=== PATIENT | male | born 1945 | race Caucasian/White ===

== ENCOUNTER 2022-06-03 21:09 | Inpatient (IN) | payer MEDICARE, BC ==
[~2022-06-03] VITALS: Ht 167.6 cm; Wt 77.6 kg
[~2022-06-03 21:09] MED LIST: ASPI-1420 PO; CARV3.122 PO; CLOP75TA15 PO; DONE5TAB34 PO; DOXA2TAB2 PO; FLUO20CA42 PO; FLUT1DIS29 IH; FURO20TA4 PO; IPRA3AMP22 IH; LEVA15HF5 IH; OMEP-99 PO; PRED50TA PO; TAMS0.4C34 PO; TIOT18CA4 IH; TRIA60LO7 TOP
--- NOTE | 2022-06-03 21:28 | NUR ---
Patient placed on CPAP by RT
[2022-06-03] MEDS ORDERED: methylPREDNISolone SOD SUCC 125 MG/2 ML VIAL IV ONE (21:30)
[2022-06-03] MEDS ORDERED: MAGNESIUM SULFATE 2 GM in IV DEXTROSE 5% 100 ML IV ONE (21:30)
--- NOTE | 2022-06-03 21:30 | NUR ---
Xray at bedside
[2022-06-03] MEDS ORDERED: ROSU5TAB PO (21:34)
[2022-06-03] MEDS ORDERED: HYDR500C2 PO (21:34)
[2022-06-03] MEDS ORDERED: APIX5TAB4 PO (21:34)
[2022-06-03] MEDS ORDERED: REPA1TAB7 PO (21:34)
[2022-06-03] MEDS ORDERED: SITA100T PO (21:34)
[2022-06-03] MEDS ORDERED: VALS40TA4 PO (21:34)
[2022-06-03] MEDS ORDERED: DAPA10TA PO (21:34)
[2022-06-03] MEDS ORDERED: OXYB5TAB16 PO (21:35)
[2022-06-03] MEDS ORDERED: MV-M1TAB18 PO (21:35)
[2022-06-03] MEDS ORDERED: OMEP40CA21 PO (21:35)
[2022-06-03] MEDS ORDERED: FURO20TA4 PO (21:35)
[2022-06-03] MEDS ORDERED: PRED20TA PO (21:35)
[2022-06-03] MEDS ORDERED: BUME2TAB7 PO (21:35)
[2022-06-03] MEDS ORDERED: MULT-596 PO (21:35)
[2022-06-03] MEDS ORDERED: TRIA15CR2 TP (21:35)
[2022-06-03] MEDS ORDERED: CYAN-51 PO (21:35)
[2022-06-03] MEDS ORDERED: FINA5TAB11 PO (21:35)
[2022-06-03] MEDS ORDERED: IPRA4AER IH (21:35)
[2022-06-03] MEDS ORDERED: MAGN400C PO (21:35)
[2022-06-03] MEDS ORDERED: MAGNESIUM SULFATE 1 GM/2 ML VIAL ONE (21:44)
[2022-06-03] MEDS ORDERED: methylPREDNISolone SOD SUCC 125 MG/2 ML VIAL ONE (21:44)
[2022-06-03 21:49] LABS: HEMATOCRIT 37.9 % (36.7-47.1); MEAN CORPUSCULAR HEMOGLOBIN 34.7 uug (23.8-33.4); MEAN CORPUSCULAR VOLUME 110.6 fL (73.0-96.2); PLATELET COUNT (AUTO) 196 K/uL (152-348)
[2022-06-03 21:58] LABS: CARBON DIOXIDE 33 mmol/L (21-32); CHLORIDE 101 mmol/L (98-107); CREATININE 1.6 mg/dL (0.6-1.3); GLUCOSE 213 mg/dL (74-106); POTASSIUM 4.3 mmol/L (3.5-5.1); UREA NITROGEN, BLOOD 41 mg/dL (7-18)
--- NOTE | 2022-06-03 22:05 | NUR ---
COVID and Flu swab sent to lab
[2022-06-03] MEDS ORDERED: CEFTRIAXONE /D5W 50ML IVPB **ER PYXIS IV ONE (22:12)
[2022-06-03] MEDS ORDERED: CEFTRIAXONE 1 G in IV DEXTROSE 5% 50 ML IV ONE (22:15)
[2022-06-03] MEDS ORDERED: AZITHROMYCIN IV 500 MG in IV DEXTROSE 5% 250 ML IV ONE (22:15)
[2022-06-03 22:16] LABS: ALANINE AMINOTRANSFERASE 24 U/L (16-63); ALKALINE PHOSPHATASE 64 U/L (50-136); ASPARTATE AMINOTRANSFERASE 28 U/L (15-37); BILIRUBIN,DIRECT 0.1 mg/dL (0.0-0.2); BILIRUBIN,TOTAL 0.6 mg/dL (0.2-1.0); TOTAL PROTEIN, SERUM 6.9 g/dL (6.4-8.2)
[2022-06-03 22:19] LABS: ABG BASE EXCESS 2.8 mmol/L; ABG HCO3 29.3 mmol/L; ABG PCO2 53.4 mmHg (35.0-45.0); ABG PH 7.357 (7.350-7.450); ABG PO2 549.5 mmHg (75.0-100.0); ABG SITE LEFT RADIAL; ABG TOTAL HEMOGLOBIN 12.5 G/dL (13.5-18.0); COHb 0.1 % (0.5-1.5); MetHb 0.3 % (0.0-1.5); O2Hb 99.5 % (94.0-97.0); VENT MODE BIPAP
--- NOTE | 2022-06-03 22:39 | NUR ---
Called [facility] for panel call. Lo configuration specialist, waiting for call back.
[2022-06-03] MEDS ORDERED: AZITHROMYCIN 500MG/ D5W 250ML IVPB **ER PYXIS ONLY IV ONE (23:10)
[2022-06-03] MEDS ORDERED: FUROSEMIDE 40 MG/4 ML VIAL IV ONE (23:45)
[2022-06-04] VITALS (11 sets, daily range): BP systolic 90–125; BP diastolic 36–69
[2022-06-04] MEDS ORDERED: ONDANSETRON 4 MG/2 ML VIAL IV PRN
[2022-06-04] MEDS ORDERED: INSULIN REGULAR, HUMAN 300 UNITS/3 ML VIAL SQ PRN
[2022-06-04] MEDS ORDERED: DEXTROSE 50% 50 ML DISP.SYRIN IV PRN
[2022-06-04] MEDS ORDERED: REMEDY ESSENTIAL ZINC PASTE 113 GM TP PRN
[2022-06-04] MEDS ORDERED: ACETAMINOPHEN 325 MG TABLET PO PRN
[2022-06-04] MEDS ORDERED: MAGNESIUM HYDROXIDE 30 ML LIQUID UDC PO PRN
--- NOTE | 2022-06-04 00:19 | NUR ---
Report given to Kvng ARMENDARIZ.
--- NOTE | 2022-06-04 01:01 | NUR ---
Patient taken to third floor room 315 via shwetha with personal belongings accompanied by respiratory therapist. Patient in stable conditions no signs of distress. Addendum: 06/04/22 at 0116 by EUGENIO Marah ARMENDARIZ aware of patients arrival
[2022-06-04] MEDS: methylPREDNISolone SOD SUCC 125 MG/2 ML VIAL IV SCH ×4 (01:36→17:04)
[2022-06-04] MEDS ORDERED: FUROSEMIDE 40 MG/4 ML VIAL IV ONE (01:45)
[2022-06-04] MEDS: PANTOPRAZOLE SODIUM 40 MG TABLET.DR PO SCH (06:21)
[2022-06-04] MEDS: BLOOD SUGAR DIAGNOSTIC 1 EACH STRIP VI SCH ×4 (06:22→20:24)
[2022-06-04 07:28] LABS: CARBON DIOXIDE 31 mmol/L (21-32); CHLORIDE 101 mmol/L (98-107); CREATININE 1.4 mg/dL (0.6-1.3); GLUCOSE 168 mg/dL (74-106); PHOSPHOROUS 5.2 mg/dL (2.5-4.9); POTASSIUM 4.1 mmol/L (3.5-5.1); UREA NITROGEN, BLOOD 37 mg/dL (7-18)
[2022-06-04 07:33] LABS: HEMATOCRIT 33.7 % (36.7-47.1); MEAN CORPUSCULAR HEMOGLOBIN 35.4 uug (23.8-33.4); MEAN CORPUSCULAR VOLUME 109.3 fL (73.0-96.2); PLATELET COUNT (AUTO) 175 K/uL (152-348)
[2022-06-04] MEDS: INSULIN REGULAR, HUMAN 300 UNIT/3 ML VIAL SQ PRN ×2 (08:21→11:01)
[2022-06-04] MEDS: FLUOXETINE HCL 20 MG CAPSULE PO SCH (08:38)
[2022-06-04] MEDS: OXYBUTYNIN CHLORIDE 5 MG TABLET PO SCH ×2 (08:38→16:47)
[2022-06-04] MEDS: TAMSULOSIN HCL 0.4 MG CAP.SR.24H PO SCH (08:38)
[2022-06-04] MEDS: FINASTERIDE 5 MG TABLET PO SCH (08:38)
[2022-06-04] MEDS: ASPIRIN EC 81 MG TABLET.DR PO SCH (08:38)
[2022-06-04] MEDS: CARVEDILOL 3.125 MG TABLET PO SCH ×2 (08:40→16:47)
[2022-06-04] MEDS: HYDROXYUREA 500 MG CAPSULE PO SCH (08:48)
[2022-06-04] MEDS ORDERED: FUROSEMIDE 40 MG/4 ML VIAL IV SCH (10:00)
--- NOTE | 2022-06-04 10:00 | NUR ---
Patient developed wheezing, sob, and labored breathing, o2 sat at nasal canula at 2 liter is 98%, dr osborne ordered, lasix, and breathing tx.
[2022-06-04] MEDS ORDERED: IPRATROPIUM BROMIDE 0.5 MG/2.5 ML NEBU NEB PRN (10:15)
[2022-06-04] MEDS ORDERED: ALBUTEROL SULFATE 2.5 MG/ 0.5 ML NEBU NEB PRN (10:15)
[2022-06-04] MEDS: FUROSEMIDE 40 MG/4 ML VIAL IV SCH ×2 (10:17→17:59)
[2022-06-04] MEDS ORDERED: DILTIAZEM HCL 25 MG IV IV PRN ×2 (10:18)
--- NOTE | 2022-06-04 11:00 | NUR ---
sob resolved, still noted with mild wheezing, however stable at this time. no acute distress noted.
--- NOTE | 2022-06-04 16:49 | NUR ---
patient noted with labored breathing wheezing, and stating that he can not breath, however was saturating at 98% at 2 liter nasal canula. patient stated he would like to go back to Bipap, that machine really helps him, RT called, Bipap initiated at 1625, 32% Fio2. MD Blanchard is aware. Per Dr Blanchard if patient needs continuous of Bipap or unstable transfer to ICU. Pet Stylist made aware, charge nurse is aware. patient stated he feels better. Addendum: 06/04/22 at 1756 by SHAY MAIN RN, RN CLARIFICATION patient stated he feels better on Bipap
--- NOTE | 2022-06-04 17:30 | NUR ---
Dr Bowens was called and notified about consult and current condition of patient.
--- NOTE | 2022-06-04 17:45 | NUR ---
report given to CCU nurse Ring, patient is alert, oriented x4, verbally responsive, patient is currently on Bipap with settings of Fio2 32%, rate 18, EPAP 6, IPAP 18. Transferred to CCU. Addendum: 06/04/22 at 1812 by SHAY MAIN RN, RN patient noted he has his wallet with him in his pants, which he did not want to expose it to anyone, he refused to give it to nurse and refused to save it in the safe, stated he wants to keep it with him, risks and benefits explained of loosing it. verbalized understanding of it still insisted to keep it with him. patient right to refuse respected. endorsed all the belongings to CCU nurse Ring accordingly. Addendum: 06/04/22 at 1815 by SHAY MAIN RN, RN Patient was transferred to CCU with charge nurse on duty, RT on duty and primary nurse.
--- NOTE | 2022-06-04 18:04 | NUR ---
patient came up on 3l NC off bipap at the time. patient was labored, and wheezing. Dr Bowens notified that patient was going to be transferred to ICU and there is consult for the patient by Benito ARMENDARIZ. Patient had an ABG drawn and then placed back on bipap.
[2022-06-04 18:06] LABS: ABG BASE EXCESS 4.2 mmol/L; ABG HCO3 30.1 mmol/L; ABG PH 7.389 (7.350-7.450); ABG PO2 106.9 mmHg (75.0-100.0); ABG SITE LEFT BRACHIAL; ABG TOTAL HEMOGLOBIN 12.2 G/dL (13.5-18.0); COHb 0.4 % (0.5-1.5); MetHb 0.3 % (0.0-1.5); O2Hb 97.3 % (94.0-97.0); VENT MODE Nasal Cannula
[2022-06-04] MEDS: CEFTRIAXONE 1 G in IV DEXTROSE 5% 50 ML IV SCH (20:17)
[2022-06-04] MEDS: ALBUTEROL SULFATE 2.5 MG/3 ML NEBU NEB SCH (21:19)
[2022-06-04] MEDS: IPRATROPIUM BROMIDE 0.5 MG/2.5 ML NEBU NEB SCH (21:19)
--- NOTE | 2022-06-04 23:40 | NUR ---
PATIENT ON AND OFF BI/PAP. ALERT AND AWAKE AT TIMES, HAS BOUTS OF SOB,OFF AT 2100, ON 2L/M NC, THEN BACK ON BI/PAP @ 23:00 , ON BI/PAP, RESTING, SAT 98%, COMFORTABLE ON BI/PAP . Ledy ANDERSON RCP Addendum: 06/04/22 at 2342 by FADUMO ANDERSON RT Amended: Links added.
[2022-06-05] VITALS (22 sets, daily range): BP systolic 94–130; BP diastolic 43–77
[2022-06-05] MEDS: methylPREDNISolone SOD SUCC 125 MG/2 ML VIAL IV SCH ×3 (00:27→20:59)
[2022-06-05 05:06] LABS: HEMATOCRIT 35.1 % (36.7-47.1); MEAN CORPUSCULAR HEMOGLOBIN 34.9 uug (23.8-33.4); MEAN CORPUSCULAR VOLUME 108.6 fL (73.0-96.2); PLATELET COUNT (AUTO) 182 K/uL (152-348)
[2022-06-05 05:23] LABS: CARBON DIOXIDE 37 mmol/L (21-32); CHLORIDE 102 mmol/L (98-107); CREATININE 1.1 mg/dL (0.6-1.3); GLUCOSE 138 mg/dL (74-106); MAGNESIUM 2.8 mg/dL (1.8-2.4); POTASSIUM 3.8 mmol/L (3.5-5.1); UREA NITROGEN, BLOOD 38 mg/dL (7-18)
[2022-06-05] MEDS: PANTOPRAZOLE SODIUM 40 MG TABLET.DR PO SCH (06:29)
--- NOTE | 2022-06-05 07:15 | NUR ---
Report given and care taken over. Pt in bed sitting up watching television No signs of distress noted. Pt able to make needs known. Accucheck done. RT at bedside. Call light within reach.
[2022-06-05] MEDS: BLOOD SUGAR DIAGNOSTIC 1 EACH STRIP VI SCH ×4 (07:37→21:00)
[2022-06-05 07:50] LABS: ABG BASE EXCESS 8.7 mmol/L; ABG HCO3 34.5 mmol/L; ABG PCO2 53.1 mmHg (35.0-45.0); ABG PO2 104.4 mmHg (75.0-100.0); ABG SITE LEFT BRACHIAL; ABG TOTAL HEMOGLOBIN 11.9 G/dL (13.5-18.0); COHb 0.6 % (0.5-1.5); MetHb 0.1 % (0.0-1.5); O2Hb 97.3 % (94.0-97.0); VENT MODE Nasal Cannula
[2022-06-05] MEDS: ALBUTEROL SULFATE 2.5 MG/3 ML NEBU NEB SCH ×4 (08:00→19:37)
[2022-06-05] MEDS: IPRATROPIUM BROMIDE 0.5 MG/2.5 ML NEBU NEB SCH ×4 (08:00→19:37)
[2022-06-05] MEDS: OXYBUTYNIN CHLORIDE 5 MG TABLET PO SCH ×2 (08:22→16:18)
[2022-06-05] MEDS: HYDROXYUREA 500 MG CAPSULE PO SCH (08:22)
[2022-06-05] MEDS: FLUOXETINE HCL 20 MG CAPSULE PO SCH (08:23)
[2022-06-05] MEDS: CARVEDILOL 3.125 MG TABLET PO SCH ×2 (08:25→16:17)
[2022-06-05] MEDS: FINASTERIDE 5 MG TABLET PO SCH (08:26)
[2022-06-05] MEDS: TAMSULOSIN HCL 0.4 MG CAP.SR.24H PO SCH (08:27)
[2022-06-05] MEDS: FUROSEMIDE 40 MG/4 ML VIAL IV SCH (08:28)
[2022-06-05] MEDS: ASPIRIN EC 81 MG TABLET.DR PO SCH (08:29)
[2022-06-05] MEDS: NUTRISOURCE FIBER 4 GM PACKET PO SCH (12:16)
--- NOTE | 2022-06-05 14:03 | NUR ---
Cut Out Operator came in to pt bedside. NO new orders. Pt eating lunch. Tolerated well. Pt breathing even and unlabored. No signs of distress noted. Call light within reach.
--- NOTE | 2022-06-05 16:55 | NUR ---
Pt in bed Tolerating nasal cannula at 3 liters. Philip draining to gravity. Dinner given. No signs of distress noted.
[2022-06-05] MEDS: APIXABAN 5 MG TABLET PO SCH (20:58)
[2022-06-05] MEDS: CEFTRIAXONE 1 G in IV DEXTROSE 5% 50 ML IV SCH ×2 (21:00→21:01)
[2022-06-06] VITALS (23 sets, daily range): BP systolic 99–122; BP diastolic 45–70
[2022-06-06 05:08] LABS: HEMATOCRIT 34.1 % (36.7-47.1); MEAN CORPUSCULAR HEMOGLOBIN 35.1 uug (23.8-33.4); MEAN CORPUSCULAR VOLUME 109.8 fL (73.0-96.2); PLATELET COUNT (AUTO) 203 K/uL (152-348)
[2022-06-06 05:18] LABS: CARBON DIOXIDE 39 mmol/L (21-32); CHLORIDE 102 mmol/L (98-107); CREATININE 1.1 mg/dL (0.6-1.3); GLUCOSE 154 mg/dL (74-106); POTASSIUM 4.2 mmol/L (3.5-5.1); UREA NITROGEN, BLOOD 40 mg/dL (7-18)
[2022-06-06] MEDS: PANTOPRAZOLE SODIUM 40 MG TABLET.DR PO SCH (06:28)
[2022-06-06] MEDS: BLOOD SUGAR DIAGNOSTIC 1 EACH STRIP VI SCH (06:48)
--- NOTE | 2022-06-06 07:30 | NUR ---
REPORT GIVEN TO KALA HENRIQUEZ
[2022-06-06 07:53] LABS: ABG BASE EXCESS 10.8 mmol/L; ABG HCO3 37.3 mmol/L; ABG PCO2 58.4 mmHg (35.0-45.0); ABG PH 7.423 (7.350-7.450); ABG PO2 93.1 mmHg (75.0-100.0); ABG SITE RIGHT BRACHIAL; ABG TOTAL HEMOGLOBIN 12.3 G/dL (13.5-18.0); COHb 0.3 % (0.5-1.5); MetHb 0.1 % (0.0-1.5); O2Hb 96.9 % (94.0-97.0); VENT MODE Nasal Cannula
[2022-06-06] MEDS: ALBUTEROL SULFATE 2.5 MG/3 ML NEBU NEB SCH ×4 (08:12→19:27)
[2022-06-06] MEDS: IPRATROPIUM BROMIDE 0.5 MG/2.5 ML NEBU NEB SCH ×4 (08:12→19:27)
[2022-06-06] MEDS: ASPIRIN EC 81 MG TABLET.DR PO SCH (08:51)
[2022-06-06] MEDS: TAMSULOSIN HCL 0.4 MG CAP.SR.24H PO SCH (08:51)
[2022-06-06] MEDS: APIXABAN 5 MG TABLET PO SCH ×2 (08:52→21:10)
[2022-06-06] MEDS: HYDROXYUREA 500 MG CAPSULE PO SCH (08:57)
[2022-06-06] MEDS: BUMETANIDE 1 MG TABLET PO SCH (09:01)
[2022-06-06] MEDS: methylPREDNISolone SOD SUCC 125 MG/2 ML VIAL IV SCH (09:01)
[2022-06-06] MEDS: CARVEDILOL 3.125 MG TABLET PO SCH ×2 (09:01→16:49)
[2022-06-06] MEDS: NUTRISOURCE FIBER 4 GM PACKET PO SCH (09:03)
[2022-06-06] MEDS: FINASTERIDE 5 MG TABLET PO SCH (09:03)
[2022-06-06] MEDS: OXYBUTYNIN CHLORIDE 5 MG TABLET PO SCH ×2 (09:03→16:48)
[2022-06-06] MEDS: FLUOXETINE HCL 20 MG CAPSULE PO SCH (09:05)
[2022-06-06] MEDS ORDERED: ACETAzolamide SODIUM 500 MG VIAL IV ONE (10:00)
--- NOTE | 2022-06-06 17:10 | NUR ---
patient sat up on the chair bed side 4 hours no signs of distress. on 1 liters nasal cannula , saturation is 95 % ate 60% of his meals. Philip catheter drains is 60cc/hr patient is back in bed, no complaint of pain
[2022-06-06] MEDS: CEFTRIAXONE 1 G in IV DEXTROSE 5% 50 ML IV SCH (21:00)
[2022-06-06] MEDS: methylPREDNISolone SOD SUCC 40 MG/ML VIAL IV SCH (21:09)
[2022-06-07] VITALS (12 sets, daily range): BP systolic 107–126; BP diastolic 36–75
[2022-06-07 05:03] LABS: HEMATOCRIT 35.8 % (36.7-47.1); MEAN CORPUSCULAR HEMOGLOBIN 35.2 uug (23.8-33.4); MEAN CORPUSCULAR VOLUME 109.1 fL (73.0-96.2); PLATELET COUNT (AUTO) 220 K/uL (152-348)
[2022-06-07 05:52] LABS: THYROID STIMULATING HORMONE 0.013 mIU/mL (0.358-3.740)
[2022-06-07] MEDS: PANTOPRAZOLE SODIUM 40 MG TABLET.DR PO SCH (06:01)
--- NOTE | 2022-06-07 07:00 | NUR ---
Received in bed, awake alert able to make needs known oxygen 1 liters nasal cannula saturation is 95% able to seat at the bed side and ambulate with physical therapist no signs of distress, patient is cleared by Md Galvan and Md Bowens able to eat 100%.
[2022-06-07] MEDS: IPRATROPIUM BROMIDE 0.5 MG/2.5 ML NEBU NEB SCH ×3 (07:21→15:47)
[2022-06-07] MEDS: ALBUTEROL SULFATE 2.5 MG/3 ML NEBU NEB SCH ×3 (07:21→15:47)
--- NOTE | 2022-06-07 07:30 | NUR ---
REPORT GIVEN TO KALA HENRIQUEZ
[2022-06-07 08:27] LABS: ABG BASE EXCESS 4.5 mmol/L; ABG HCO3 30.7 mmol/L; ABG PCO2 52.4 mmHg (35.0-45.0); ABG PH 7.385 (7.350-7.450); ABG SITE RIGHT RADIAL; ABG TOTAL HEMOGLOBIN 12.7 G/dL (13.5-18.0); COHb 0.8 % (0.5-1.5); MetHb 0.2 % (0.0-1.5); VENT MODE Nasal Cannula
[2022-06-07] MEDS: ASPIRIN EC 81 MG TABLET.DR PO SCH (10:01)
[2022-06-07] MEDS: FINASTERIDE 5 MG TABLET PO SCH (10:01)
[2022-06-07] MEDS: methylPREDNISolone SOD SUCC 40 MG/ML VIAL IV SCH (10:01)
[2022-06-07] MEDS: CARVEDILOL 3.125 MG TABLET PO SCH ×2 (10:04→17:00)
[2022-06-07] MEDS: TAMSULOSIN HCL 0.4 MG CAP.SR.24H PO SCH (10:05)
[2022-06-07] MEDS: APIXABAN 5 MG TABLET PO SCH (10:05)
[2022-06-07] MEDS: BUMETANIDE 1 MG TABLET PO SCH (10:08)
[2022-06-07] MEDS: OXYBUTYNIN CHLORIDE 5 MG TABLET PO SCH ×2 (10:08→17:00)
[2022-06-07] MEDS: HYDROXYUREA 500 MG CAPSULE PO SCH (10:14)
[2022-06-07] MEDS: NUTRISOURCE FIBER 4 GM PACKET PO SCH (10:15)
[2022-06-07] MEDS: FLUOXETINE HCL 20 MG CAPSULE PO SCH (10:15)
[2022-06-07] MEDS ORDERED: FLUTICASONE/VILANTEROL 1 EACH BLST.W.DEV INH SCH (12:00)
[2022-06-07 12:19] LABS: CARBON DIOXIDE 29 mmol/L (21-32); CHLORIDE 101 mmol/L (98-107); GLUCOSE 106 mg/dL (74-106); POTASSIUM 3.8 mmol/L (3.5-5.1); UREA NITROGEN, BLOOD 45 mg/dL (7-18)
[2022-06-07 12:20] LABS: ALANINE AMINOTRANSFERASE 21 U/L (16-63); ALKALINE PHOSPHATASE 46 U/L (50-136); ASPARTATE AMINOTRANSFERASE 19 U/L (15-37); BILIRUBIN,TOTAL 0.6 mg/dL (0.2-1.0); CREATININE 1.2 mg/dL (0.6-1.3); PHOSPHOROUS 4.2 mg/dL (2.5-4.9)
[2022-06-07 12:21] LABS: CHOLESTEROL 176 mg/dL (<200); HDL CHOLESTEROL 76 mg/dL (40-60); TRIGLYCERIDES 92 MG/DL (30-150)
[2022-06-07] MEDS ORDERED: AMOX-430 PO (13:34)
[2022-06-07] MEDS ORDERED: SITA50TA PO (13:34)
[2022-06-07] MEDS ORDERED: BUME1TAB8 PO (13:34)
[2022-06-07] MEDS ORDERED: CARV3.122 PO (13:34)
--- NOTE | 2022-06-07 13:34 | NUR ---
called md FERNANDO for orders to remove Philip cath, waiting for reply.
--- NOTE | 2022-06-07 13:57 | NUR ---
hill cath removed, discharged order noted
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
--- NOTE | 2022-06-07 16:27 | NUR ---
DCD instructions and copy of dcd documentation given and reviewed with pt. who verbalized understanding. IV line dcd due to patients persistence. Awaiting for ambulance.
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
--- NOTE | 2022-06-07 18:00 | NUR ---
DISCHARGE HOME VIA AMBULANCE , ATIENT AMBULATE TO THE [facility] ABLE TO MAKE NEEDS KNOWN, BLOOD PRESSURE 126/76 78 2O TEMP IS 98.2. ALL ORDERS NOTED
[2022-06-07] MEDS ORDERED: TAMSULOSIN HCL 0.4 MG CAP.SR.24H PO SCH (21:00)
== END 2022-06-07 18:30 | disposition home health service (06) | DRG 871 ==
LOC: ER 21:09 → TELE-TD3 22:40 → TELE3 06-04 00:24 → TELE-TD3 06-04 00:25 → TELE3 06-04 09:19 → CCU 06-04 17:23
PROVIDERS: ADMIT Internal Medicine; ATTEND Internal Medicine
PROC: 5A09457 Assistance with Respiratory Ventilation, 24-96 Consecutive Hours, Continuous Positive Airway Pressure (ICD-10-PCS; principal; 2022-06-03)
DX: A41.9 Sepsis, unspecified organism (principal); I50.43 Acute on chronic combined systolic (congestive) and diastolic (congestive) heart failure; J96.21 Acute and chronic respiratory failure with hypoxia; J15.6 Pneumonia due to other Gram-negative bacteria; N17.0 Acute kidney failure with tubular necrosis; J96.22 Acute and chronic respiratory failure with hypercapnia; I13.0 Hypertensive heart and chronic kidney disease with heart failure and stage 1 through stage 4 chronic kidney disease, or unspecified chronic kidney disease; J44.1 Chronic obstructive pulmonary disease with (acute) exacerbation; D68.69 Other thrombophilia; E46 Unspecified protein-calorie malnutrition; J44.0 Chronic obstructive pulmonary disease with (acute) lower respiratory infection; E53.0 Riboflavin deficiency; E11.22 Type 2 diabetes mellitus with diabetic chronic kidney disease; E11.65 Type 2 diabetes mellitus with hyperglycemia; E66.01 Morbid (severe) obesity due to excess calories; K80.20 Calculus of gallbladder without cholecystitis without obstruction; I25.5 Ischemic cardiomyopathy; N18.9 Chronic kidney disease, unspecified; Z20.822 Contact with and (suspected) exposure to COVID-19; Z86.73 Personal history of transient ischemic attack (TIA), and cerebral infarction without residual deficits; Z86.718 Personal history of other venous thrombosis and embolism; I25.2 Old myocardial infarction; I25.10 Atherosclerotic heart disease of native coronary artery without angina pectoris; F17.210 Nicotine dependence, cigarettes, uncomplicated; D64.9 Anemia, unspecified; N40.0 Benign prostatic hyperplasia without lower urinary tract symptoms; Z79.01 Long term (current) use of anticoagulants; E66.9 Obesity, unspecified; Z68.27 Body mass index [BMI] 27.0-27.9, adult; Z74.09 Other reduced mobility; K21.9 Gastro-esophageal reflux disease without esophagitis; D75.89 Other specified diseases of blood and blood-forming organs; E05.90 Thyrotoxicosis, unspecified without thyrotoxic crisis or storm; F32.A Depression, unspecified
CPT/HCPCS: 36415; 36600; 71045; 82803; 83605; 83735; 84100; 84443; 84484; 85025; 86140; 87040; 93005; 93307; 94640; 94660; 99082-TC; A4663; G0378; J0456; J0696; J1120; J1815; J1940; J2920; J2930; J3475; J3590